=== PATIENT | female | born 1940 | race Caucasian/White ===

== ENCOUNTER 2019-04-16 08:39 | Day surgery (SDC) ==
--- NOTE | 2019-03-26 08:20 | EKG Report ---
Test Performed on : 03/26/2019 07:40:22 AM Test Reason : PAT Blood Pressure : / mmHG Vent. Rate : 069 BPM Atrial Rate : 069 BPM P-R Int : 138 ms QRS Dur : 132 ms QT Int : 440 ms P-R-T Axes : -45 -34 -75 degrees QTc Int : 471 ms Unusual P axis, possible ectopic atrial rhythm. Left axis deviation Right bundle branch block T wave abnormality, consider inferior ischemia Abnormal ECG When compared with ECG of 10-MAR-2014 13:04, Ectopic atrial rhythm. has replaced Sinus rhythm. Right bundle branch block is now present Confirmed by Sd Randolph MD ([id number]) on 03/26/2019 9:13:07 AM
[2019-03-26 08:23] LABS: URINE SOURCE CLEAN CATCH
[2019-03-26 08:38] LABS: BASO# 0.03 X1000 (0.0-0.2); BASO% 0.4 % (0.0-0.8); EOS# 0.16 X1000 (0.0-0.7); EOS% 2.2 % (0.0-10.0); HEMATOCRIT 34.6 % (37.0-47.0); HEMOGLOBIN 11.1 g/dL (12.0-16.0); IMM GRAN# 0.04 X1000 (0.0-0.04); IMM GRAN% 0.6 % (0.0-0.5); LYMPH# 0.72 X1000 (1.2-3.4); LYMPH% 9.9 % (20.5-51.1); MCH 28.8 PG (27-31); MCHC 32.1 g/dL (33-37); MCV 89.9 FL (81-99); MONO# 0.51 X1000 (0.11-0.59); MPV 8.5 FL (7.4-10.4); NEUT% 79.9 % (42.2-75.2); PLT 218 X1000 (130-400); RBC 3.85 XMIL (4.2-5.4); RDW 13.7 % (11.5-14.5); WBC 7.26 X1000 (4.8-10.8)
[2019-03-26 08:41] LABS: BILIRUBIN URINE NEGATIVE (NEGATIVE); BLOOD URINE NEGATIVE (NEGATIVE); COLOR YELLOW; GLUCOSE URINE NEGATIVE (NEGATIVE); KETONE URINE NEGATIVE (NEGATIVE); LEUKOCYTES URINE LARGE (NEGATIVE); NITRITE URINE NEGATIVE (NEGATIVE); PROTEIN URINE NEGATIVE (NEGATIVE); SP GRAVITY URINE 1.008; TURBIDITY URINE CLEAR (CLEAR); UROBILINOGEN URINE NORMAL (NORMAL)
[2019-03-26 08:43] LABS: UR EPITHELIAL CELLS <10 /HPF (<10); URINE BACTERIA 1+ /HPF; URINE RBC <10 /HPF (<10); URINE WBC TNTC /HPF (<10)
[2019-03-26 08:46] LABS: INR 0.93; PROTIME 13.2 Seconds (11.0-16.0)
[2019-03-26 08:47] LABS: PTT 27.6 Seconds (22.3-41.8)
[2019-03-26 08:56] LABS: AGAP 10; BUN 12 mg/dL (8-22); CHLORIDE 96 mmol/L (98-107); COSMO 272; CREATININE 0.9 mg/dL (0.5-0.9); ESTIMATED GFR > 60; GLUCOSE 171 mg/dL (70-104); POTASSIUM 4.4 mmol/L (3.5-5.1); SODIUM 134 mmol/L (136-145); TCO2 28 mmol/L (25-35)
[2019-04-16] MEDS ORDERED: REGLAN ONE (09:17)
[2019-04-16] MEDS ORDERED: PEPCID ONE (09:17)
[2019-04-16] MEDS ORDERED: LYRICA ONE (09:17)
[2019-04-16] MEDS ORDERED: COLACE ONE (09:17)
[2019-04-16] MEDS ORDERED: VANCOMYCIN 1 GM/NS 1 GM/250 ML IVPB ONE (09:18)
[2019-04-16] MEDS ORDERED: LR 1,000 ML ONE (09:18)
[2019-04-16] MEDS ORDERED: CELEBREX ONE (09:18)
[2019-04-16] MEDS ORDERED: MARCAINE 0.25% PF ONE (11:04)
[2019-04-16] MEDS ORDERED: TORADOL ONE (11:04)
[2019-04-16] MEDS ORDERED: DURAMORPH ONE (11:04)
[2019-04-16] MEDS ORDERED: DECADRON ONE (11:05)
[2019-04-16] MEDS ORDERED: XYLOCAINE-MPF 2% ONE (11:05)
[2019-04-16] MEDS ORDERED: VANCOMYCIN ONE (11:05)
[2019-04-16] MEDS ORDERED: ZOFRAN ONE (11:05)
[2019-04-16] MEDS ORDERED: ROBINUL ONE (11:05)
[2019-04-16] MEDS ORDERED: FENTANYL ONE (11:06)
[2019-04-16] MEDS ORDERED: CYKLOKAPRON 1,000 MG/NS 1,000 MG/100 ML IVPB ONE ×2 (11:06→11:07)
[2019-04-16] MEDS ORDERED: DIPRIVAN 1% ONE (11:06)
[2019-04-16] MEDS ORDERED: NEOSPORIN G.U. IRRIGANT ONE (11:06)
[2019-04-16] MEDS ORDERED: SODIUM CHLORIDE 0.9% ONE (11:06)
[2019-04-16] MEDS ORDERED: EXPAREL 1.3% ONE (11:06)
[2019-04-16] MEDS ORDERED: OFIRMEV 1000 MG/ISOTONIC SOLN 1,000 MG/100 ML BOTTLE ONE (11:07)
[2019-04-16 12:27] LABS: URINE SOURCE CATH
[2019-04-16 12:42] LABS: BILIRUBIN URINE NEGATIVE (NEGATIVE); BLOOD URINE NEGATIVE (NEGATIVE); COLOR YELLOW; GLUCOSE URINE NEGATIVE (NEGATIVE); KETONE URINE NEGATIVE (NEGATIVE); LEUKOCYTES URINE NEGATIVE (NEGATIVE); NITRITE URINE NEGATIVE (NEGATIVE); PH URINE 5.5; PROTEIN URINE TRACE mg/dL (NEGATIVE); SP GRAVITY URINE 1.014; TURBIDITY URINE CLEAR (CLEAR); UROBILINOGEN URINE NORMAL (NORMAL)
[2019-04-16 12:45] LABS: UR EPITHELIAL CELLS <10 /HPF (<10); URINE BACTERIA NEGATIVE /HPF; URINE RBC <10 /HPF (<10); URINE WBC <10 /HPF (<10)
[2019-04-16] MEDS ORDERED: NS 1,000 ML ONE (14:02)
--- NOTE | 2019-04-16 14:09 | Diag Imaging Result Doc PS360 ---
KNEE 1-2 VIEWS-RIGHT - 04/16/2019 INDICATION: post op total knee TECHNIQUE: Two views COMPARISON: None FINDINGS: There has been total knee arthroplasty. Alignment is anatomic. No hardware fracture or loosening. IMPRESSION: No complication. Electronically signed by Quoc Kahn 04/16/2019 2:07 PM
--- NOTE | 2019-04-16 14:24 | OPERATIVE NOTE ---
PROCEDURE DATE: 04/16/2019 PREOPERATIVE DIAGNOSIS: Osteoarthritis of the right knee. POSTOPERATIVE DIAGNOSIS: Osteoarthritis of the right knee. PROCEDURE PERFORMED: Right total knee arthroplasty with DePuy Attune size 4 narrow posterior stabilized femur, size 3 tibial tray, a 7 mm rotating platform tibial insert, and a 29 mm medialized anatomic patella. SURGEON: Vincent Crowley MD. PROMOTIONS TEAM LEADER: CALI Reid. He was necessary for proper retraction and manipulation of the extremity during the case. SECOND MATCHING MACHINE OPERATOR: Wes Navarro RN. ANESTHESIA: Spinal. IV FLUIDS: Lactated Ringer's 1200 mL. ESTIMATED BLOOD LOSS: 50 mL. COMPLICATIONS: None. INDICATION: The patient is a pleasant, 78-year-old female with a chronic history of worsening pain and discomfort of the right knee. She has continued pain and discomfort despite appropriate nonoperative treatment. X-rays reveals degenerative osteoarthritis and recommendation to proceed with a right total knee arthroplasty was offered. Risks and benefits of surgery were explained including the risks of anesthesia, , bleeding, infection, failure to relieve pain, postoperative stiffness, nerve injury, blood clots, and other imponderables. All questions were answered. Patient and family wished to proceed with surgery. DETAILS OF OPERATION: The patient was taken to the operating room and placed supine on the operating table. Once adequate anesthesia was obtained, the right lower extremity was subsequently prepped and draped in the usual sterile fashion. An Esmarch was used to exsanguinate the right lower extremity and the tourniquet was inflated to 300 mmHg. A standard anterior incision was made with a skin knife. Medial and lateral skin envelopes were developed. Standard medial parapatellar arthrotomy was then performed. Patella fat pad was excised. Approximately 1 cm anterior to the PCL insertion, a starting reamer was passed. Intramedullary guide with a distal femoral cutting block was pinned in position. Distal femoral cut was then performed in a standard fashion. A sizing block was then placed. It measured a size 4. Corresponding pins were placed. A size 4 cutting block was placed in position. Anterior, posterior, and chamfer cuts were then made. Attention was then turned to the proximal tibia where further resection of the ACL and PCL was performed. Using the extramedullary guide, the proximal tibia cutting block was pinned in position. It had good alignment, confirmed with the alignment masood. The proximal tibia then resected. Medial and lateral menisci were excised. A curved osteotome was used to remove the posterior osteophytes off the distal femur. A spacer block was then placed and had good soft tissue balance in both flexion and extension. The size 3 tibial tray appeared to be the correct size. This was pinned in position. This was followed by a central reamer and a fin punch. The box cutting guide was then placed on the distal femur. A box cut was performed. A trial femoral component was then placed and 2 lug holes were drilled. A trial tibial insert was then placed. It had good soft tissue balance and good range of motion. The patella was everted and resected in a standard fashion. A size 29 appeared to be the correct size. Corresponding holes were drilled. The trial patella component was then placed. It had good patellofemoral tracking. Trial components were then removed. Copious irrigation was then performed with antibiotic pulsatile lavage while vancomycin was mixed cement on the back table. Sequential cementing was then performed, first with the tibial tray and excess cement was removed with a [place], followed by the femoral component and excess cement was removed with a [place], followed by the trial tibial insert in full extension. Axial loading was maintained while cement cured. After the cement had cured, peripheral cement was removed with a small osteotome. A 7 mm rotating platform tibial insert appeared to be the correct size. The trial insert was removed. Exparel was placed in the deep soft tissue. The wound was copiously irrigated once again, followed by the 7 mm rotating platform tibial insert. The knee was then carried through a range of motion. It had good range of motion, good soft tissue balancing, and good patellofemoral tracking. A 1/8 Hemovac drain was placed. It was not sewn in. Copious irrigation was then performed once again with antibiotic pulsatile lavage. Number 1 Vicryl was then used to repair the arthrotomy, followed by 2-0 Vicryl to repair the subcutaneous tissue, and skin jun. Adaptic, sterile 4 x 4s, Webril, cryo unit, and John wrap were applied to the left lower extremity. The patient tolerated the procedure well with no complications and was transferred to the recovery room in stable condition. cc: Vincent Crowley MD
[2019-04-16] MEDS ORDERED: OXY IR ONE (14:26)
[2019-04-16] MEDS ORDERED: MORPHINE IV PRN ×2 (14:30)
[2019-04-16] MEDS ORDERED: MILK OF MAGNESIA PO PRN (14:30)
[2019-04-16] MEDS ORDERED: OXY IR PO PRN (14:30)
[2019-04-16] MEDS ORDERED: ZOFRAN PO PRN (14:30)
[2019-04-16] MEDS: NS 1,000 ML IV SCH (17:53)
[2019-04-16] MEDS ORDERED: CATAPRES PO PRN ×2 (18:54→23:16)
[2019-04-16] MEDS ORDERED: DESYREL PO SCH (21:00)
[2019-04-16] MEDS ORDERED: DILANTIN PO SCH (21:00)
[2019-04-16] MEDS: NORVASC PO SCH (21:51)
[2019-04-16] MEDS: NEURONTIN PO SCH (21:51)
[2019-04-16] MEDS: COLACE PO SCH (21:51)
[2019-04-16] MEDS: TRANDATE PO SCH (21:51)
[2019-04-16] MEDS: PERIDEX MT SCH (21:51)
[2019-04-16] MEDS: OXY IR PO PRN (21:55)
[2019-04-16] MEDS ORDERED: VANCOMYCIN 1 GM/NS 1 GM/250 ML IVPB IV ONE (23:00)
[2019-04-17] MEDS ORDERED: XARELTO PO SCH (06:00)
[2019-04-17 06:03] LABS: HEMATOCRIT 25.7 % (37.0-47.0); HEMOGLOBIN 8.2 g/dL (12.0-16.0)
[2019-04-17] MEDS: OXY IR PO PRN ×2 (06:04→13:16)
--- NOTE | 2019-04-17 06:18 | ORTHOPAEDICS PROGRESS NOTE ---
DATE: 04/17/2019 SUBJECTIVE: The patient is a pleasant 78-year-old female who is 1 day status post right total knee arthroplasty. She is currently resting comfortably. PHYSICAL EXAMINATION: The patient's right lower extremity, her wound looks good. There are no signs or symptoms of infection. She has expected ecchymosis on the medial aspect of the knee. Her calf is soft. She has active dorsiflexion and plantar flexion. She is able to perform a straight leg raise. LABS: Pending. IMPRESSION: Postoperative day #1 status post right total knee arthroplasty. PLAN: At this point, will mobilize physical therapy and anticipate discharging home later today if she is mobilizing well. Will arrange for home physical therapy. Patient will follow up in the office on 04/28/2019. cc: Vincent Crowley MD
[2019-04-17 06:20] LABS: AGAP 6; BUN 12 mg/dL (8-22); CALCIUM 8.2 mg/dL (8.8-10.2); CHLORIDE 100 mmol/L (98-107); COSMO 273; CREATININE 0.8 mg/dL (0.5-0.9); ESTIMATED GFR > 60; GLUCOSE 151 mg/dL (70-104); POTASSIUM 3.8 mmol/L (3.5-5.1); SODIUM 135 mmol/L (136-145); TCO2 29 mmol/L (25-35)
[2019-04-17] MEDS ORDERED: SYNTHROID PO SCH (07:00)
[2019-04-17] MEDS: MORPHINE IV PRN ×2 (08:02→13:54)
[2019-04-17] MEDS: NS 1,000 ML IV SCH (08:30)
[2019-04-17] MEDS: PERIDEX MT SCH (08:40)
[2019-04-17] MEDS: NEURONTIN PO SCH ×2 (08:41→13:19)
[2019-04-17] MEDS: COLACE PO SCH (08:41)
[2019-04-17] MEDS: NORVASC PO SCH (08:41)
[2019-04-17] MEDS: TRANDATE PO SCH (08:42)
[2019-04-17] MEDS: SYNTHROID PO SCH ×2 (08:48→08:50)
[2019-04-17] MEDS ORDERED: ALDACTONE PO SCH (09:00)
[2019-04-17] MEDS ORDERED: PRINIVIL PO SCH (09:00)
[2019-04-17] MEDS ORDERED: LEXAPRO PO SCH (09:00)
[2019-04-17] MEDS ORDERED: PEPCID PO SCH (09:00)
[2019-04-17 16:06] VITALS: BP 164/54
== END 2019-04-17 14:14 | disposition home or self-care (01) ==
LOC: 4N 08:39 → OR 08:39
PROVIDERS: ATTEND Orthopaedic Surgery Adult Reconstructive Orthopaedic Surgery

== ENCOUNTER 2019-09-10 12:31 | Inpatient (IN) ==
[2019-09-10] MEDS ORDERED: CATAPRES PO PRN (14:12)
[2019-09-10] MEDS ORDERED: NORCO-5 PO PRN (14:12)
[2019-09-10] MEDS ORDERED: TYLENOL PO PRN (14:12)
[2019-09-10] MEDS ORDERED: NS 1,000 ML IV ONE (14:12)
[2019-09-10] MEDS ORDERED: IMODIUM PO PRN (14:12)
[2019-09-10 14:34] LABS: BASO# 0.01 X1000 (0.0-0.2); BASO% 0.2 % (0.0-0.8); EOS# 0.02 X1000 (0.0-0.7); EOS% 0.5 % (0.0-10.0); HEMATOCRIT 38.6 % (37.0-47.0); IMM GRAN# 0.03 X1000 (0.0-0.04); IMM GRAN% 0.7 % (0.0-0.5); LYMPH# 0.59 X1000 (1.2-3.4); LYMPH% 13.8 % (20.5-51.1); MCH 29.1 PG (27-31); MCHC 33.7 g/dL (33-37); MCV 86.5 FL (81-99); MONO# 0.36 X1000 (0.11-0.59); MONO% 8.4 % (1.7-9.3); MPV 8.7 FL (7.4-10.4); NEUT# 3.28 X1000 (1.4-6.5); NEUT% 76.4 % (42.2-75.2); PLT 207 X1000 (130-400); RBC 4.46 XMIL (4.2-5.4); RDW 14.4 % (11.5-14.5); WBC 4.29 X1000 (4.8-10.8)
--- NOTE | 2019-09-10 14:34 | Diag Imaging Result Doc PS360 ---
EXAM: ABDOMEN FLAT/UPRIGHT 09/10/2019 HISTORY: abdominal pain TECHNIQUE: Flat and upright abdomen COMMENT: There are spondylotic changes in the thoracic spine and in the lumbar spine there is degenerative change in the L2-3 disc space. There is stool and gas in the colon without evidence of dilatation. There is no evidence of small bowel dilatation or gastric distention. No evidence of organomegaly or mass is present. IMPRESSION: Nonspecific abdomen. Electronically signed by Kahlil Burnette 09/10/2019 2:31 PM
[2019-09-10 14:47] LABS: AGAP 14; ALB/GLOB RATIO 1.8; ALBUMIN 4.1 g/dL (3.5-5.0); ALKALINE PHOSPHATASE 116 U/L (32-104); AMYLASE 29 U/L (20-200); BUN 13 mg/dL (8-22); CALCIUM 8.8 mg/dL (8.8-10.2); CHLORIDE 93 mmol/L (98-107); COSMO 268; CREATININE 0.7 mg/dL (0.5-0.9); ESTIMATED GFR > 60; GLUCOSE 128 mg/dL (70-104); GOT 26 U/L (10-30); GPT 18 U/L (10-36); LIPASE 21 U/L (13-60); POTASSIUM 3.8 mmol/L (3.5-5.1); SODIUM 133 mmol/L (136-145); TCO2 26 mmol/L (25-35); TOTAL BILIRUBIN 0.49 mg/dL (0.20-1.00); TOTAL PROTEIN 6.4 g/dL (6.3-8.3)
[2019-09-10] MEDS: ZOFRAN IV PRN (14:52)
[2019-09-10] MEDS: NS 1,000 ML IV SCH (16:01)
[2019-09-10] MEDS: BENTYL PO SCH (16:05)
[2019-09-10] MEDS: LOVENOX SUBQ SCH (16:05)
[2019-09-10] MEDS ORDERED: TRANDATE PO ONE (16:34)
[2019-09-10 17:59] LABS: URINE SOURCE CLEAN CATCH
[2019-09-10 18:10] LABS: BILIRUBIN URINE NEGATIVE (NEGATIVE); BLOOD URINE NEGATIVE (NEGATIVE); COLOR STRAW; GLUCOSE URINE NEGATIVE (NEGATIVE); KETONE URINE TRACE mg/dL (NEGATIVE); LEUKOCYTES URINE NEGATIVE (NEGATIVE); NITRITE URINE NEGATIVE (NEGATIVE); PROTEIN URINE TRACE mg/dL (NEGATIVE); SP GRAVITY URINE 1.005; TURBIDITY URINE CLEAR (CLEAR); UR EPITHELIAL CELLS <10 /HPF (<10); URINE BACTERIA NEGATIVE /HPF; URINE RBC <10 /HPF (<10); URINE WBC <10 /HPF (<10); UROBILINOGEN URINE NORMAL (NORMAL)
[2019-09-10] MEDS ORDERED: DILANTIN PO SCH (21:00)
[2019-09-10] MEDS ORDERED: LIPITOR PO SCH (21:00)
[2019-09-10] MEDS ORDERED: DESYREL PO SCH (21:00)
[2019-09-10] MEDS: TRANDATE PO SCH (21:02)
[2019-09-10] MEDS: NORVASC PO SCH (21:02)
[2019-09-10] MEDS: NEURONTIN PO SCH (21:03)
--- NOTE | 2019-09-10 21:30 | HISTORY AND PHYSICAL ---
PRIMARY CARE PHYSICIAN: Dr. Sd Randolph. CHIEF COMPLAINT: Profound weakness and dehydration. HISTORY OF PRESENT ILLNESS: A 78-year-old white female with a complicated past medical history who presents for evaluation of above-mentioned symptoms. Pertinent history of present illness began several weeks ago. At that time, patient was evaluated in my clinic secondary to upper respiratory symptoms. She was treated with a Z-Joaquin with improvement. The patient has noted some fatigue since that time, although she was approaching her baseline until Sunday. At that time, she developed intractable diarrhea. Unfortunately, throughout the day Sunday, her symptoms persisted. Because of profound weakness as well as persistent symptoms, she was evaluated in the emergency department in the trade show specialist hours of Sunday after being transported via EMS. Upon arrival, full evaluation was pursued. Laboratory data returned concerning with an elevated white blood cell count of 20,000. Otherwise, laboratory data suggested reasonable control. The patient was treated with IV fluids and ultimately discharged home with Imodium and Bentyl therapy. Unfortunately, since the discharge from the emergency department, her p.o. intake has been essentially 0. She had significant diarrhea until yesterday. This is slowly improving. She has had subjective fevers and chills. Her energy level remains very low. Upon arrival to my office, patient had difficulty standing and ambulating without assistance. Because of her profound weakness and persistence of symptoms, patient will be admitted to the hospital for full evaluation and management. Of note, patient denies dysuria, hematuria, pyuria, hematochezia, melena, shortness of breath, cough, congestion, palpitations, and significant abdominal discomfort. PAST MEDICAL HISTORY: 1. Acute pancreatitis, diagnosed in 2012, associated with chlorthalidone therapy. 2. Allergic rhinitis. 3. Anemia. 4. Anxiety/depression. 5. Fibrocystic breast disease, status post negative left breast biopsies in 1991 and 1998. 6. Right bundle branch block. 7. Left trochanteric bursitis. 8. Cataracts. 9. History of chronic cholecystitis, status post laparoscopic cholecystectomy in 1988. 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 11. Iron deficiency. 12. History of diffuse lip and hand dermatitis, followed by Dr. Courtney. 13. Diabetes. 14. 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 15. Reflux disease. 16. Hypertension. 17. External hemorrhoids. 18. Hyperlipidemia. 19. Low back pain. 20. Meniere disease. 21. Mild cognitive impairment. 22. Osteoarthritis. 23. Postmenopausal state. 24. Hypothyroidism. 25. History of uterine leiomyoma, status post [facility] in 1974. CURRENT MEDICATIONS: 1. Aspirin 81 mg daily. 2. Amlodipine 5 mg twice daily. 3. Atorvastatin 20 mg at bedtime. 4. Clonidine 0.3 mg every 4 to 6 hours as needed for systolic blood pressure greater than 180. 5. Colace 100 mg twice daily. 6. Doxazosin 8 mg at bedtime. 7. Duloxetine 30 mg 2 tablets in the morning and 1 tablet in the evening. 8. Iron sulfate 325 mg daily. 9. Lasix 40 mg daily. 10. Gabapentin 600 mg twice daily. 11. Hydrocodone/acetaminophen 5/325 as needed. 12. Labetalol 600 mg 3 times daily. 13. Levothyroxine 100 mcg daily. 14. Meclizine 25 mg twice daily as needed. 15. Meloxicam 15 mg daily. 16. Nexium 20 mg daily as needed. 17. Nitrostat as needed. 18. Pepcid 20 mg twice daily as needed. 19. Dilantin 100 mg 3 tablets daily. 20. Spironolactone 25 mg daily. 21. Trazodone 50 mg at bedtime. 22. Zyrtec 10 mg daily as needed. ALLERGIES: Patient states she is allergic to: 1. Amiloride causes hyponatremia. 2. Betadine causes a rash. 3. Catapres patch causes a rash secondary to adhesive. 4. Ceclor causes a rash. 5. Chlorthalidone causes pancreatitis. 6. Hydralazine. 7. Imdur causes a headache. 8. Lisinopril causes angioedema. 9. Minoxidil causes angioedema. 10. Robaxin causes anxiety. SOCIAL HISTORY: Patient denies tobacco, alcohol or illicit drug use. She is retired from [email or web address]. She enjoys reading. She exercises intermittently. FAMILY HISTORY: Patient's father passed at age 58 secondary to complications of colon cancer. Patient's mother passed at age 86 secondary to Alzheimer's dementia. Patient's daughter passed at age 49 secondary to complications of breast cancer. She had a sister who passed at age 61 secondary to renal cell carcinoma. REVIEW OF SYSTEMS: A 12 point review of systems was performed. Pertinent positives and negatives noted in History of Present Illness. PHYSICAL EXAMINATION: VITAL SIGNS: Temperature 98 degrees, heart rate 79, respirations 16, blood pressure is 210/90. GENERAL: Ill-appearing, no acute distress. HEENT: Normocephalic, atraumatic. Pupils equal, round, react to light. Extraocular muscles intact. Sclerae anicteric. [place] conjunctivae. Oral and nasopharynx clear without exudate. Dry mucous membranes. NECK: Supple. No lymphadenopathy. No thyromegaly. No bruits auscultated. CARDIOVASCULAR: Regular rate and rhythm. No significant murmurs, rubs, or gallops. PULMONARY: Clear to auscultation bilaterally. ABDOMEN: Soft, nontender, nondistended. Positive bowel sounds. EXTREMITIES: Moves all extremities well. No significant clubbing, cyanosis, or edema. NEUROLOGIC: Cranial nerves 2 through 12 grossly intact. Motor and sensory grossly intact. PSYCHOLOGIC: Examination is appropriate. LABORATORY DATA: White blood cell count 4.29, hemoglobin 13.0, hematocrit 38.6, platelet count is 207,000. Sodium 133, potassium 3.8, chloride 93, bicarb 26, BUN 13, creatinine 0.7, glucose 128, calcium 8.8, total bilirubin 0.49, total protein 6.4, albumin 4.1, alkaline phosphatase 116, AST 26, ALT 18, amylase 29, lipase 21. Flat and upright abdominal x-ray suggested nonspecific abdomen. ASSESSMENT AND PLAN: A 78-year-old white female, with a complicated past medical history, presents for evaluation of profound fatigue and associated dehydration. This is a consequence of an apparent enteritis. Patient will be admitted to the hospital for full evaluation and management of each of these conditions. 1. Admit to General Medicine. 2. Enteritis. This appears to be viral in etiology. Her symptoms are slowly improving. We will continue supportive care. At this point, I do not feel antibiotic intervention is appropriate. Should patient develop any progressive symptoms, we will consider CT scan evaluation. We will send stool for culture, Clostridium difficile toxin, and white blood cells. 3. Profound weakness. This is a consequence of her viral illness and associated dehydration. We will start patient on intravenous hydration. We will treat patient's enteritis supportively. Once the patient is able to tolerate oral intake, we will plan to initiate physical therapy. 4. Dehydration. Clinically, patient is dehydrated. We will treat patient with 1 L of normal saline followed by 75 mL an hour. This will be followed as well. 5. Hypertension. Patient has a longstanding history of very difficult to control hypertension. We will continue her home regimen. Historically, patient has been seen in a hypertensive clinic without improvement in her condition. We will follow this while hospitalized. 6. Anxiety/depression. We will continue patient on home medications. 7. Diabetes. This diagnosis is historical. At the present time, she is treated only with dietary modification. We will follow this while hospitalized as well. 8. 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 We will continue patient on home medications. 9. Reflux disease. We will continue patient on Pepcid therapy. 10. Hyperlipidemia. We will continue patient on atorvastatin therapy. 11. Chronic low back pain. We will continue patient on home medical regimen. 12. Fluid, electrolytes, nutrition. We will monitor electrolytes. Normal saline at 75 mL an hour. Clear liquid diet. 13. Prophylaxis. Patient will be placed on subcutaneous Lovenox. cc: Sd Randolph MD
[2019-09-11] MEDS: NS 1,000 ML IV SCH (03:22)
[2019-09-11] MEDS: BENTYL PO SCH ×3 (06:11→16:13)
[2019-09-11] MEDS ORDERED: NS 1,000 ML IV SCH (08:26)
[2019-09-11] MEDS: CATAPRES PO PRN ×2 (08:41→19:17)
[2019-09-11] MEDS: NEURONTIN PO SCH (08:41)
[2019-09-11] MEDS: TRANDATE PO SCH ×2 (08:41→14:45)
[2019-09-11] MEDS: NORVASC PO SCH (08:42)
[2019-09-11] MEDS ORDERED: SYNTHROID PO SCH (09:00)
[2019-09-11] MEDS ORDERED: PEPCID PO SCH (09:00)
[2019-09-11] MEDS: ZOFRAN IV PRN (11:48)
[2019-09-11] MEDS: LOVENOX SUBQ SCH (14:45)
[2019-09-11 18:49] VITALS: BP 220/74
--- NOTE | 2019-09-12 18:45 | DISCHARGE SUMMARY ---
ADMISSION DATE: 09/10/2019 DISCHARGE DATE: 09/11/2019 ADMISSION DIAGNOSES: 1. Profound weakness. 2. Dehydration. DISCHARGE DIAGNOSES: 1. Enteritis, resolved. 2. Profound weakness, improving. 3. Dehydration, improving. 4. Hypertension, present on arrival. 5. Anxiety/depression, present on arrival. 6. Diabetes, present on arrival. 7. Seizure disorder, present on arrival. 8. Reflux disease, present on arrival. 9. Hyperlipidemia, present on arrival. 10. Chronic low back pain, present on arrival. CONSULTATIONS: None. PROCEDURES: Flat and upright of the abdomen was performed on 09/10/2019, which revealed a nonspecific abdomen. HISTORY AND PHYSICAL EXAMINATION: See admit note. DISCHARGE PHYSICAL EXAMINATION: Vital Signs: Physical examination prior to discharge, temperature 98.9 degrees, heart rate 70, respirations 16, blood pressure is 177/57. General: Well nourished, well developed, no acute distress. Cardiovascular: Regular rate and rhythm. No significant murmurs, rubs, or gallops. Pulmonary: Clear to auscultation bilaterally. Abdomen: Soft, nontender, nondistended. Positive bowel sounds. Extremities: Moves all extremities well. No significant clubbing, cyanosis, or edema. Dermatologic: Evaluation reveals no evidence of rash. LABORATORY DATA: Prior to discharge none. HOSPITAL COURSE: Patient was admitted as per history and physical examination. Hospital course per condition is as follows: 1. Enteritis-upon admission, patient was noted to have considerable, but recovering symptoms. Patient had been seen in the emergency department with similar symptoms. She was treated with IV fluids and discharged home. Unfortunately, patient did not achieve improvement. The patient was admitted and placed on IV fluids and supportive care. With aggressive management, symptoms did improve. Patient will be discharged home with as needed Bentyl, Zofran, and Imodium therapy. 2. Dehydration-upon admission, patient was clinically dehydrated. With IV fluids, patient achieved euvolemic. 3. Profound weakness-this likely is a consequence of her enteral enteritis and dehydration. Once again, with treatment of above, symptoms improved. She is approaching baseline at time of discharge. 4. Hypertension-patient has longstanding, labile hypertension. She has been seen by a hypertensive specialist in [place], although without significant improvement. The patient was continued on home medications with the exception of spironolactone and Lasix therapy. Blood pressure remained elevated, but largely unchanged from her home pressures. Patient will be discharged home with her home medications. She will resume spironolactone and Lasix therapy on September 15. 5. Anxiety/depression, diabetes, seizure disorder, reflux disease, hyperlipidemia, chronic low back pain-the patient's home medication were continued for each of these conditions. The patient's symptoms remained stable. The patient will be continued on her previously prescribed home medications. DISCHARGE CONDITION: Good. DISPOSITION: Discharge to home. MEDICATIONS: 1. [place] 5/325 every 4 hours as needed. 2. Levothyroxine 100 mcg daily. 3. Labetalol 600 mg 3 times daily. 4. Tylenol 650 mg every 6 hours as needed. 5. Aspirin 81 mg daily. 6. Duloxetine 30 mg 2 tablets in the morning and 1 tablet in the evening. 7. Iron sulfate 325 mg daily. 8. Clonidine 0.3 mg every 4 hours as needed. 9. Gabapentin 600 mg twice daily. 10. Doxazosin 8 mg at bedtime. 11. Trazodone 50 mg at bedtime. 12. Dilantin 300 mg at bedtime. 13. Amlodipine 5 mg twice daily. 14. Pepcid 20 mg daily. 15. Spironolactone 12.5 mg daily. 16. Imodium as needed. 17. Zofran ODT 4 mg every 6 hours as needed. 18. Bentyl 10 mg 3 times daily as needed. 19. Atorvastatin 20 mg at bedtime. 20. The patient is to resume Lasix and spironolactone on September 15. FOLLOWUP: The patient has a follow up with me in approximately 1 to 2 weeks. cc: Sd Randolph MD
== END 2019-09-11 21:00 | disposition home or self-care (01) | DRG 641 ==
LOC: DIRADM → OBSVTOIN 12:31 → EDIPHOLD 14:06 → 1N 19:01
PROVIDERS: ADMIT Internal Medicine; ATTEND Internal Medicine